=== PATIENT | female | born 1955 | race Two or more races ===

== ENCOUNTER 2021-07-27 12:50 | Emergency (ER) | payer OTHER ==
[~2021-07-27] VITALS: Ht 157.5 cm; Wt 77.1 kg
[~2021-07-27 12:50] MED LIST: AMOXICILLIN500 MG PO; DIOVAN40 MG; MUCINEX DM1 TAB.SR . PO; ZITHROMAX TRI-500 MG PO
== END 2021-07-27 14:15 | disposition home or self-care (01) ==
LOC: ER 12:50
DX: J06.9 Acute upper respiratory infection, unspecified (principal)

== ENCOUNTER 2022-12-03 16:27 | Emergency (ER) | payer OTHER ==
[~2022-12-03] VITALS: Ht 154.9 cm; Wt 80.3 kg
== END 2022-12-03 20:52 | disposition home or self-care (01) ==
LOC: ER 16:27
DX: R19.7 Diarrhea, unspecified (principal)